=== PATIENT | female | born 1995 ===

== ENCOUNTER 2020-11-25 08:20 | Outpatient (REF) | payer BC, SELFPAY ==
--- NOTE | 2020-11-25 18:54 | MHC.AU.AEV ---
Adult Audiological Evaluation Date of Visit: 11/25/20 Reason for Appointment: Audiological evaluation. Ms. Braden reports that she was diagnosed with Central Auditory Processing Disorder (CAPD) at age 6. She feels that she has always had difficulty hearing and notes that she often has to ask for repetition. She feels her left ear is worse than her right. Ms. Braden is pursuing evaluation of her hearing sensitivity and central auditory processing abilities because she will be taking a [facility] exam and is seeking testing accommodations. She notes that throughout her undergraduate education she received test taking accommodations, including testing in a separate room and extended time. She did not have accommodations in her graduate studies, as she did not take tests and only had written reports. Ms. Braden remembers receiving some pull-out services when in elementary and middle school, though she is not sure what services she received. Ms. Braden recently had a neuropsychological evaluation and has an upcoming language/cognition evaluation. Has hearing been tested previously?: Yes Previous Hearing Test Results: [facility] Speech[facility] [place], 2003- Normal hearing sensitivity. Central Auditory Processing Disorder with below normal scores for [id number] discrimination, dichotic digits, frequency patterns when labeled verbally (normal when hummed, suggesting possible problem in the corpus callosum). Hearing Handicap Inventory Does a hearing problem cause you to feel embarrassed when meeting new people?: Yes Does a hearing problem cause you to feel frustrated when talking to members of your family?: Yes Do you have difficulty when someone speaks in a whisper?: Yes Do you feel handicapped by a hearing problem?: No Does a hearing problem cause you difficulty when visiting friends, relatives, or neighbors?: No Does a hearing problem cause you to attend hoahaoism service services less often than you would like?: No Does a hearing problem cause you to have arguments with family members?: No Does a hearing problem cause you difficulty when listening to TV or radio?: No Do you feel that any difficult with your hearing limits or hampers your personal or social life?: No Does a hearing problem cause you difficulty when in a restaurants with relatives or friends?: Yes HHIE SCORE: 16 Based on HHIE score, patient has: Mild to moderate perceived hearing handicap Ear History: Family History of Hearing Loss?: Yes: maternal and paternal grandfathers Medical History: Medical History: Head Injury Medical History: 3-4 concussions in high school and college, none of which required hospitalization. Hernia under the age of 5 years, 3 bulging discs in lower spine which was first noticed in 2012. Allergies: Medication List: Nuva Ring, Celexia 30 mg daily, Muscle relaxer PRN Otoscopy: Right Ear: Unremarkable Left Ear: Unremarkable Tympanometry: Tympanometry performed due to: To assess integrity of the middle ear system Right Ear: Negative Middle Ear Pressure (Type C) Left Ear: Negative Middle Ear Pressure (Type C) Valsalva maneuver performed, ran tympanometry again and middle-ear function was returned to normal. Acoustic Reflexes: Ipsilateral Probe Right: 500 Hz: Absent 1000 Hz: Absent 2000 Hz: Absent 4000 Hz: Absent Probe Left: 500 Hz: Absent 1000 Hz: Absent 2000 Hz: Absent 4000 Hz: Absent *Note: Absent reflexes may be the results of middle-ear dysfunction. Otoacoustic Emissions Frequency Range Used: 1.6-8 kHz Right Ear Results: Normal 4409-5948 Hz. Reduced 8000 Hz. Analysis: Present emissions suggest normal cochlear function Rules out peripheral hearing loss greater than a mild degree Reduced/Absent emissions suggest cochlear dysfunction Left Ear Results: Present Emissions Analysis: Present emissions suggest normal cochlear function Rules out peripheral hearing loss greater than a mild degree Hearing Evaluation: Transducer(s) Used: Insert Earphones, Bone Conduction Method: Conventional Audiometry Stimuli Used: Pure Tones Right Ear: Description of Hearing: Normal hearing from 250-8000 Hz. Left Ear: Description of Hearing: Normal hearing from 250-8000 Hz. Speech Recognition Threshold (SRT): Method Used: Monitored Live Voice Stimuli Used: Spondee Words Right Ear: 0 dBHL Left Ear: -5 dBHL Word Discrimination: Method: Recorded Lists Word Lists Used:: NU-6 Right Ear: 92% at 40 dBHL Left Ear: 96% at 40 dBHL QuickSIN: Presented at 60 dBHL Right ear- 4 dB mild SNR loss, mild difficulties understanding speech in noise. Left ear- 2 dB SNR loss, within normal speech understanding in noise abilities. Binaural- 0 dB SNR loss, within normal speech understanding in noise abilities. Recommendations: If results from Ms. Braden's neuropsychological and speech/language evaluations rule out any global processing deficits, then it is recommended that Ms. Braden return for a full Central Auditory Processing Evaluation. Diagnosis: Primary Diagnosis: H69.93 Unspecified Eustachian Tube Dysfunction, Bilateral Secondary Diagnosis: H93.293 Abnormal Auditory Perception Services Performed: Comprehensive Audiological Evaluation (CPT 95196) Diagnostic Otoacoustic Emissions (CPT 07962, 26+TC) Tympanometry and Acoustic Reflexes (CPT 93490) Signature: Provider: Moises Callahan, CCC-A
== END 2020-11-25 08:21 | disposition home or self-care (01) ==
LOC: HO.SH 08:20
PROVIDERS: Visit Provider Nurse Practitioner Family
DX: H69.93 Unspecified Eustachian tube disorder, bilateral (principal); H93.293 Other abnormal auditory perceptions, bilateral; H93.25 Central auditory processing disorder
CPT/HCPCS: 92550; 92557; 92567; 92588; 92700

== ENCOUNTER 2020-12-27 09:03 | Outpatient (RCR) | payer OTHER, SELFPAY ==
--- NOTE | 2020-12-27 13:51 | MHC.SP.ADU ---
Referring provider: Dr. Tressa Mcallister Reason for Referral: Cognitive/linguistic evaluation Type of Treatment: 80685 Evaluation Speech Sound Production WITH Language Date of Plan of Treatment: 12/27/20 Onset of Symptoms/Illness: 07/23/02 Date Treatment Started: Medical Diagnosis: ADHD CAPD Primary Speech Language Diagnosis: R41.840 Attention and concentration deficit Secondary Speech Language Diagnosis: History Rochelle Braden is a 25 years old female who was referred to [facility]'s Speech & Hearing Department by her primary care physician, Dr. Tressa Mcallister for concerns regarding Rochelle's language processing skills. Ms. Braden reported that she was diagnosed with Central Auditory Processing Disorder in 2002, when she was in third grade. She reported that she received services in school, though does not recall specifically what was targeted. While completing her undergraduate degree, Ms. Braden received accommodations for testing purposes including secluded area and additional time. 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 She has her Master's degree in social work and is seeking accommodations for her [facility] exam. She was recently evaluated by a neuropsychologist in which she was diagnosed with attention deficit hyperactivity disorder (ADHD). In addition, she also had her hearing evaluated at [facility], Speech & Hearing. The results are as follows: Presented at 60 dBHL: Right ear- 4 dB mild SNR loss, mild difficulties understanding speech in noise. Left ear- 2 dB SNR loss, within normal speech understanding in noise abilities. Binaural- 0 dB SNR loss, within normal speech understanding in noise abilities . At that time, Dr. Webb recommended completing neuropsychological and speech/language/cognitive evaluations to rule out a global processing deficits before returning for a full Central Auditory Processing Evaluation. Additional medical history includes 3 concussions from 7744-1071, none of which required hospitalization. Ms. Braden stated that she often finds herself re-reading information to process it. In addition, she stated that she experiences the most difficulty while at work. It can be difficult for her to listen to families and formulate responses quickly. She reported that her deficits do not directly impact her ability to function in daily life. 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 Braden reported receiving services in school, though does not recall exactly what her goals were. She received testing accommodations while completing her undergraduate degree. Reported Speech, Language, Cognition difficulties: Understanding Attention Reading Memory Problem Solving Comments: Quality of Life: Patient Stated Goal of Speech-Language Therapy: Ms. Braden wishes to complete this evaluation as to get a clear picture of her learning disabilities and capabilities. She is also seeking accommodations for her [employer] exam. Assessment Speech Production: Within Functional Limits Clinical Impression: Intact Observations: Informally judged to be WFL. Informal Voice Assessment: Voice Loudness: WFL Voice Nasal Resonance: WFL Voice Oral Resonance: WFL Voice Phonatory-based Quality: WFL Voice Pitch: WFL Voice Other Observations: Clinical Impression: Intact Clinicial Observations: Informally judged by a trained yet unfamiliar listener to be WFL for age. Tests of Speech & Lang Adults: Clinical Impression: Intact Observations: Ms. Braden was evaluated using the Communication Activities of Daily Living-second edition (CADL-2). The CADL-2 is a standardized assessment to measure functional communication of adults. Rochelle's performance is as follows: Raw Score: 96 Percentile Rank: 97% Stanine Score: 9 Interpretation: HIGH level of functional communication Although Ms. Braden's performance indicates that she is well within the average range of functioning, she continues to present with difficulties with sustained attention and concentration. Ms. Braden also presents with difficulty listening in background noise or concentrating when more than one person is speaking at a time. These difficulties are likely attributed to her new diagnosis of ADHD, rather than a cognitive/linguistic deficit. When speaking with Ms. Braden after the testing was completed, she was not surprised with the outcome. She stated that her difficulties are not necessarily with understanding language, rather concentration and processing of the information auditorily. Tests of Cognition: Clinical Impression: Intact Observations: Though not formally assessed using a standardized assessment, Ms. Espinos cognitive communication abilities are subjectively judged to be WFL. Augmentative and Alternative Communication: Observations: N/A Impressions and Recommendations Summary: Impact on Daily Function/Activity Limitations: Daily Activities: Mild Interpersonal Interactions: Mild Education: Mild Employment: Mild Community: Mild Prognosis for Improvement: Excellent Comment: Recommendation for Speech Therapy: NA:Typical Evaluation Frequency/Duration: N/A Date Range for Service Requested: N/A Time to Reassess: N/A Tool Setter Goals: Based on the results of this evaluation, skilled speech therapy is not warranted. Recommended Referrals to be Discussed with Primary Care Provider: Audiological Evaluation An audiological evaluation for Central Auditory Processing is recommended, as results of this evaluation are deemed within functional limits. Patient Education: Completed: Yes Patient/Caregiver Education: Described Results of Evaluation Patient expressed understanding of evaluation Comments/Barriers to Learning: Heat Engineering Teacher Clinican/Clinical Fellow: Yes: Alisha Greenberg M.A., CF-LINER [employer] Supervisory Statement: Speech Language Pathologist:
--- NOTE | 2020-12-30 10:08 | MHC.SP.ADU ---
Referring provider: Dr. Tressa Mcallister Reason for Referral: Cognitive/linguistic evaluation Type of Treatment: 95583 Evaluation Speech Sound Production WITH Language Date of Plan of Treatment: 12/27/20 Onset of Symptoms/Illness: 07/23/02 Date Treatment Started: Medical Diagnosis: ADHD CAPD Primary Speech Language Diagnosis: R41.840 Attention and concentration deficit Secondary Speech Language Diagnosis: History Rochelle Braden is a 25 years old female who was referred to [facility]'s Speech & Hearing Department by her primary care physician, Dr. Tressa Mcallister for concerns regarding Rochelle's language processing skills. Ms. Braden reported that she was diagnosed with Central Auditory Processing Disorder in 2002, when she was in third grade. She reported that she received services in school, though does not recall specifically what was targeted. While completing her undergraduate degree, Ms. Braden received accommodations for testing purposes including secluded area and additional time. 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 She has her Master's degree in social work and is seeking accommodations for her [facility] exam. She was recently evaluated by a neuropsychologist in which she was diagnosed with attention deficit hyperactivity disorder (ADHD). In addition, she also had her hearing evaluated at [facility], Speech & Hearing. The results are as follows: Presented at 60 dBHL: Right ear- 4 dB mild SNR loss, mild difficulties understanding speech in noise. Left ear- 2 dB SNR loss, within normal speech understanding in noise abilities. Binaural- 0 dB SNR loss, within normal speech understanding in noise abilities . At that time, Dr. Webb recommended completing neuropsychological and speech/language/cognitive evaluations to rule out a global processing deficits before returning for a full Central Auditory Processing Evaluation. Additional medical history includes 3 concussions from 6650-5555, none of which required hospitalization. Ms. Braden stated that she often finds herself re-reading information to process it. In addition, she stated that she experiences the most difficulty while at work. It can be difficult for her to listen to families and formulate responses quickly. She reported that her deficits do not directly impact her ability to function in daily life. Medical History: Head Injury Other: Medication List: Recent Hospitalizations: Respiratory Needs: Room Air Patient Orientation: Alert & Oriented x 4 Social History: Employment Status: [employer] Employed Highest level of education obtained: Completed Master's Current Living Situation: Assistive Devices in use: Glasses/Contacts Comment: Past Speech Language Therapy: Ms. Braden reported receiving services in school, though does not recall exactly what her goals were. She received testing accommodations while completing her undergraduate degree. Other Therapies Seen in Current Calendar Year: None Other: Swallowing History: Dysphagia Specific: Within Functional Limits Comments: Pre-eval Risk for Aspiration: Pre-evaluation Dietary Consistencies: Pre-eval Liquid Intake: Pre-eval Medication Intake: Reported Speech, Language, Cognition difficulties: Understanding Attention Reading Memory Problem Solving Comments: Quality of Life: Patient Stated Goal of Speech-Language Therapy: Ms. Braden wishes to complete this evaluation as to get a clear picture of her learning disabilities and capabilities. She is also seeking accommodations for her [facility] exam. Assessment Speech Production: Within Functional Limits Clinical Impression: Intact Observations: Informal Voice Assessment: Voice Loudness: Voice Nasal Resonance: Voice Oral Resonance: Voice Phonatory-based Quality: Voice Pitch: Voice Other Observations: Clinical Impression: Intact Clinicial Observations: Tests of Speech & Lang Adults: Clinical Impression: Intact Observations: Ms. Braden was evaluated using the Communication Activities of Daily Living-second edition (CADL-2). The CADL-2 is a standardized assessment to measure functional communication of adults. Rochelle's performance is as follows: Raw Score: 96 Percentile Rank: 97% Stanine Score: 9 Interpretation: HIGH level of functional communication Although Ms. Braden's performance indicates that she is well within the average range of functioning, she continues to present with difficulties with sustained attention and concentration. Ms. Braden also presents with difficulty listening in background noise or concentrating when more than one person is speaking at a time. These difficulties are likely attributed to her new diagnosis of ADHD, rather than a cognitive/linguistic deficit. When speaking with Ms. Braden after the testing was completed, she was not surprised with the outcome. She stated that her difficulties are not necessarily with understanding language, rather concentration and processing of the information auditorily. Tests of Cognition: Clinical Impression: Intact Observations: Though not formally assessed using a standardized assessment, Ms. Espinos cognitive communication abilities are subjectively judged to be WFL. Augmentative and Alternative Communication: Observations: Impressions and Recommendations Summary: Impact on Daily Function/Activity Limitations: Daily Activities: Mild Interpersonal Interactions: Mild Education: Mild Employment: Mild Community: Mild Prognosis for Improvement: Excellent Comment: Recommendation for Speech Therapy: NA:Typical Evaluation Frequency/Duration: Date Range for Service Requested: Time to Reassess: Skilled Nursing Goals: Based on the results of this evaluation, skilled speech therapy is not warranted. Short Term Goals: Goal # : Goal Status: Goal# : Goal Status: Goal # : Goal Status: Goal # : Goal Status: Recommended Referrals to be Discussed with Primary Care Provider: Audiological Evaluation An audiological evaluation for Central Auditory Processing is recommended, as results of this evaluation are deemed within functional limits. Patient Education: Completed: Yes Patient/Caregiver Education: Described Results of Evaluation Patient expressed understanding of evaluation Comments/Barriers to Learning: Main Line Station Engineer Clinican/Clinical Fellow: Yes: Alisha Greenberg M.A., CF-DRUG DEPARTMENT WORKER Supervisory Statement: Yes Speech Language Pathologist: Madeline Orozco M.A., CCC-DRUG DEPARTMENT WORKER
== END 2021-11-21 16:04 | disposition home or self-care (01) ==
LOC: HO.SH 09:03
PROVIDERS: Visit Provider Nurse Practitioner Family
DX: H93.25 Central auditory processing disorder (principal)
CPT/HCPCS: 92523